=== PATIENT | female | born 1970 | race Caucasian/White ===

== ENCOUNTER 2022-12-28 16:10 | Outpatient (CLI) | payer MEDICAID, SELFPAY ==
[2022-12-28 22:48] LABS: Vitamin D 25 Hydroxy* 32 ng/mL (30-80)
== END 2022-12-28 16:11 | disposition home or self-care (01) ==
LOC: FRMREF 16:11
PROVIDERS: PCP Family Medicine; Visit Provider Family Medicine
DX: E11.9 Type 2 diabetes mellitus without complications (principal)
CPT/HCPCS: 82306

== ENCOUNTER 2023-01-11 11:53 | Outpatient (CLI) | payer MEDICAID, SELFPAY | END 2023-01-11 11:54 | disposition home or self-care (01) | PROVIDERS: PCP Family Medicine; Visit Provider Nurse Practitioner Family | DX: R30.0 Dysuria (principal); N39.0 Urinary tract infection, site not specified | CPT/HCPCS: 87086; 87186 ==

== ENCOUNTER 2023-01-27 09:07 | Outpatient (CLI) | payer MEDICAID, SELFPAY | END 2023-01-27 09:08 | disposition home or self-care (01) | LOC: NFLDREF 01-29 01:18 | PROVIDERS: PCP Family Medicine; Referring Provider Family Medicine; Visit Provider Family Medicine | DX: N39.0 Urinary tract infection, site not specified (principal) | CPT/HCPCS: 87086 ==

== ENCOUNTER 2023-02-02 08:02 | Outpatient (CLI) | payer MEDICAID, SELFPAY | END 2023-02-02 08:03 | disposition home or self-care (01) | PROVIDERS: PCP Family Medicine; Visit Provider Physician Assistant Medical | DX: N39.0 Urinary tract infection, site not specified (principal); R10.9 Unspecified abdominal pain | CPT/HCPCS: 80053; 87086 ==

== ENCOUNTER 2023-02-03 13:49 | Outpatient (CLI) | payer MEDICAID, SELFPAY ==
--- NOTE | 2023-02-03 14:00 | CRLHL7_ITS ---
For Patients: As a result of the Century Cures Act, medical imaging exams and procedure reports are released immediately into your electronic medical record. You may view this report before your referring provider. If you have questions, please contact your health care provider. Indication: history of recurrent UTI, right abdominal pain Technique: Noncontrast CT abdomen and pelvis Please note that all CT scans at this facility use dose modulation, iterative reconstruction, and/or weight-based dosing when appropriate to reduce radiation dose to as low as reasonably achievable. Comparison: 09/10/2019 Findings: Lung bases are clear. No pleural effusion. No basilar infiltrate. There are 2 small simple cysts within the left hepatic lobe measuring up to 9 millimeters. The gallbladder is absent. No biliary obstruction. The spleen is normal. The pancreas is unremarkable. Normal adrenal glands. The kidneys are normal. Stable subcentimeter retroperitoneal lymph nodes. The bladder is unremarkable. Normal uterus and ovaries. No adnexal mass. No pelvic free fluid. No abscess. No free air. Stomach appears normal. No bowel obstruction. No inflammatory bowel disease. Stable subcentimeter right sided mesenteric lymph nodes. The ureters are normal. Transitional lumbosacral anatomy on the right at L5-S1 incidentally noted. Appendix is surgically absent. Impression: No renal, ureteral or bladder stone. No hydronephrosis or hydroureter. No inflammatory changes. Incidental intrahepatic cysts and status post cholecystectomy. Stable subcentimeter mesenteric and retroperitoneal lymph nodes, considered normal. Please note that all CT scans at this facility use dose modulation, iterative reconstruction, and/or weight-based dosing when appropriate to reduce radiation dose to as low as reasonably achievable. Dictated by Jermaine Fonseca MD @ 02/04/2023 7:09:12 AM (Electronically Signed)
== END 2023-02-03 13:50 | disposition home or self-care (01) ==
LOC: CT 13:50
PROVIDERS: PCP Family Medicine; Visit Provider Physician Assistant Medical
DX: N39.0 Urinary tract infection, site not specified (principal); K76.89 Other specified diseases of liver; R10.9 Unspecified abdominal pain
CPT/HCPCS: 74176

== ENCOUNTER 2023-02-22 08:13 | Outpatient (CLI) | payer MEDICAID, SELFPAY | END 2023-02-22 08:14 | disposition home or self-care (01) | PROVIDERS: PCP Family Medicine; Visit Provider Physician Assistant | DX: N89.8 Other specified noninflammatory disorders of vagina (principal); N39.0 Urinary tract infection, site not specified | CPT/HCPCS: 87086; 87102; 87186 ==

== ENCOUNTER 2023-03-04 10:47 | Outpatient (CLI) | payer MEDICAID, SELFPAY ==
--- NOTE | 2023-03-04 11:00 | CRLHL7_ITS ---
For Patients: As a result of the Century Cures Act, medical imaging exams and procedure reports are released immediately into your electronic medical record. You may view this report before your referring provider. If you have questions, please contact your health care provider. INDICATION: Pelvic pain COMPARISON: CT 02/03/2023 TECHNIQUE: 2D gary scale and color Doppler images were acquired of the pelvis using a transabdominal and transvaginal approach. FINDINGS: Sonographic images demonstrate a normal size and smooth outer contour of the uterus. Uterus measures 6.1 cm in length by 3.9 cm in AP diameter by 3.4 cm in transverse dimension. The myometrium has a normal uniform echotexture. The endometrial lining measures 3 mm in composite thickness. The ovaries are not visualized. There are no suspicious fluid collections within the cul-de-sac. IMPRESSION: Normal uterus. Ovaries not visualized. Dictated by Jermaine Fonseca MD @ 03/04/2023 11:45:52 AM (Electronically Signed)
== END 2023-03-04 10:48 | disposition home or self-care (01) ==
PROVIDERS: PCP Family Medicine; Visit Provider Physician Assistant
DX: R10.2 Pelvic and perineal pain (principal)
CPT/HCPCS: 76830; 76856

== ENCOUNTER 2023-03-08 11:17 | Outpatient (CLI) | payer MEDICAID, SELFPAY | END 2023-03-08 11:18 | disposition home or self-care (01) | PROVIDERS: PCP Family Medicine; Referring Provider Family Medicine; Visit Provider Obstetrics & Gynecology | DX: N39.0 Urinary tract infection, site not specified (principal) | CPT/HCPCS: 87086 ==

== ENCOUNTER 2023-05-05 14:44 | Outpatient (CLI) | payer MEDICAID, SELFPAY ==
--- OUTSIDE RECORDS SUMMARY | 2023-05-06 09:48 | XMS_ITS | Continuity of Care Document ---
Author Name Unknown Organization [facility] v[facility] Address [address] [place] [address] Phone Care Team Providers Care Clerk General Office Name Role Phone Will MD SALVADOR, Jayme Unavailable Unavailabl e Allergies, Adverse Reactions, Alerts Substance Reaction Status Criticality BUPROPION HCL Active No Information vancomycin Active No Information NITROFURANTOIN MACROCRYSTALLINE Active No Information nitrofurantoin Active No Informatio n azithromycin Active No Information adhesive Rash Active No Information Penicillins Rash Active No Information gabapentin Rash Active No Information Medications Medication Instructions Dosage Effective Dates (start - stop) Status Comments ESTRADIOL (unknown strength) insert by vaginal route every week Not Available - Active Flonase Allergy Relief 50 mcg/actuation nasal spray,suspension spray 1 - 2 spray by intranasal route every day in each nostril as needed 50-100 MCG - Active Procedures Procedure Date OFFICE/OUTPATIENT VISIT, EST Drug test def 22+ classes Drug Urine Toxology With Chromatography PT-FOCUSED HLTH RISK ASSMT OFFICE CONSULTATION OFFICE/OUTPATIENT VISIT, EST OFFICE/OUTPATIENT VISIT, EST INTERVENE HLTH/BEHAVE, IN OFFICE/OUTPATIENT VISIT, EST INTERVENE HLTH/BEHAVE, IN MANUAL THERAPY PT RE-EVALUATION INTERVENE HLTH/BEHAVE, IN MANUAL THERAPY NEUROMUSCULAR REEDUCATION INTERVENE HLTH/BEHAVE, IN OFFICE/OUTPATIENT VISIT, EST NEUROMUSCULAR REEDUCATION THERAPEUTIC ACTIVITIES THERAPEUTIC EXERCISES INTERVENE HLTH/BEHAVE, IN NEUROMUSCULAR REEDUCATION MANUAL THERAPY THERAPEUTIC EXERCISES NEUROMUSCULAR REEDUCATION MANUAL THERAPY THERAPEUTIC EXERCISES INTERVENE HLTH/BEHAVE, IN OFFICE/OUTPATIENT VISIT, EST INTERVENE HLTH/BEHAVE, IN INTERVENE HLTH/BEHAVE, INDIV NEUROMUSCULAR REEDUCATION MANUAL THERAPY [employer] THERAPEUTIC ACTIVITIES PT EVALUATION NEUROMUSCULAR REEDUCATION PT [place] OFFICE/OUTPATIENT VISIT, EST INTERVENE HLTH/BEHAVE, INDIV INTERVENE HLTH/BEHAVE, INDIV ASSESS HLTH/BEHAVE, INIT Prescription Prior Auth OFFICE/OUTPATIENT VISIT, EST OFFICE/OUTPATIENT VISIT, EST NEUROMUSCULAR REEDUCATION MANUAL THERAPY NEUROMUSCULAR REEDUCATION MANUAL THERAPY NEUROMUSCULAR REEDUCATION PT EVALUATION MANUAL THERAPY OFFICE CONSULTATION Advance Directives Directive Yes / No Effective Date File Name No Information Encounters Encounter Description Practice Location Reason(s) For Visit Diagnoses Date Provider Providers Copied on Encounter [facility], [address] [place], [place], [id number] , [place] tel:[phone] [facility] [place] No Information 2 Chalino Delacruz. [address] [place], [id number], [place]. tel:[phone] OFFICE/OUTPAT IENT VISIT, EST [facility], [address] [place], [id number] , [place] tel:[phone] [facility] [place] Abdominal pain (chief complaint) Chest pain, unspecifiedGene ralized abdominal painOther jail (current) drug therapy 9 Marietta Harris. [address] [place] [address], [id number], [place]. tel:[phone] Referring Provider: Jayme Haji, [address] [place] [address], [address]. [phone] OFFICE CONSULTATION [facility], [address] [place] [address], [id number] , [place] tel:[phone] [facility] Abdominal pain (chief complaint) Other chronic painGeneralized abdominal painChest pain, unspecifiedEnco unter for therapeutic drug level monitoringLong term (current) use of opiate analgesicOther jail (current) drug therapy 9 Marietta Harris. [address] [place] [address] 11 [facility] [address], [place], [id number], [place]. tel:[phone] Referring Provider: Al Oswald [facility] [address] [place], [address]. tel:[phone] OFFICE/OUTPAT IENT VISIT, [facility], [address] [place] [address], [id number] , [place] [phone] [facility] [place] widespread pain (chief complaint) Vitamin D deficiency 2 Will Jayme. [address] [place] [address] [place], [place], [id number], [place]. tel:[phone] Referring Provider: Jayme Haji, [address] [place] [address], [address]. tel:[phone] OFFICE/OUTPAT IENT VISIT, [facility], [address] [place] [address], [id number] , [place] [phone] [facility] [place] widespread pain (chief complaint) Myalgia and myositis, unspecified 1 Will Jayme. [address] [place] [address], [place], [place], [id number], [place]. tel:[phone] Referring Provider: Jayme Haji, [address] [place] [address], [address]. [phone] [facility], [address] [place] [address], [id number] , [place] tel:[phone] [facility] [place] Myalgia and myositis, unspecified 1 Aisha Tyler Peg. [address] [place] [address], [id number], [place]. tel:[phone] Referring Provider: Jayme Haji, [address] [place] [address], [address]. [phone] OFFICE/OUTPAT IENT VISIT, EST [facility], [address] [place] [address], [id number] , [place] tel:[phone] [facility] [place] widespread pain (chief complaint) Myalgia and myositis, unspecified 1 Chalino Delacruz. [address] [place] [address], [id number], [place]. tel:[phone] Referring Provider: Jayme Haji, [address] [place] [address], [address]. tel:[phone] [facility], [address] [place] [address], [id number] , [place] tel:[phone] [facility] [place] Myalgia and myositis, unspecified Sep-2 1 Aisha Tyler Peg. [address] [place] [address], [id number], [place]. tel:[phone] Referring Provider: Jayme Haji, [address] [place] [address], [address]. tel:[phone] [facility], [address] [place] [address], [id number] , [place] tel:[phone] [facility] hip pain (chief complaint) No Information Sep-2 1 Bandar Wolf. [address] [place] [address], [address]. tel:[phone] [facility], [address] [place] [address], [id number] , [place] tel: [phone] [facility] [place] Myalgia and myositis, unspecified 1 Aisha Scott Peg. [address] [place] [address], [id number], [place]. tel:[phone] Referring Provider: Jayme Haji, [address] [place] [address], [address]. [phone] [facility], [address] [place] [address], [id number] , [place] tel:[phone] [facility] hip pain (chief complaint) No Information 1 Bandar PT SHON Wolf. [address] [place] [address], [address]. tel:[phone] Referring Provider: Jayme Haji, [address] [place] [address], [address]. [phone] [facility], [address] [place] [address], [id number] , [place] tel:[phone] [facility] Myalgia and myositis, unspecified 1 Aisha Scott Peg. [address] [place] [address], [id number], [place]. tel:[phone] Referring Provider: Jayme Haji, [address] [place] [address], [address]. tel:[phone] OFFICE/OUTPAT IENT VISIT, EST [facility], [address] [place] [address], [id number] , [place] [phone] [facility] [place] widespread pain (chief complaint) Myalgia and myositis, unspecified 1 Chalino Delacruz. [address] [place] [address], [id number], [place]. tel:[phone] Referring Provider: Jayme aHji, [address] [place] [address], [address]. tel: [phone] [facility], [address] [place] [address], [id number] , [place] tel: [phone] [facility] hip pain (chief complaint) No Information 1 Portillo PT PRC Maryann. [address] [place] [address], [address]. tel:[phone] Referring Provider: Jayme Haji, [address] [place] [address], [address]. tel: [phone] [facility], [address] [place] [address], [id number] , [place] tel: [phone] [facility] Myalgia and myositis, unspecified 1 Aisha Alvarenga. [address] [place] [address], [id number], [place]. tel:[phone] Referring Provider: Jayme Haji, [address] [place] [address], [address]. tel: [phone] [facility], [address] [place] [address], [id number] , [place] tel: [phone] [facility] [place] No Information 1 Bandar PT PRC Maryann. [address] [place] [address], [address]. tel:[phone] Referring Provider: Jayme Haji, [address] [place] [address], [address]. tel: [phone] [facility], [address] [place] [address], [id number] , [place] tel: [phone] [facility] [place] No Information 1 Portillo PT PRC Maryann. [address] [place] [address], [address]. tel:[phone] Referring Provider: Jayme Haji, [address] [place] [address], [address]. tel:[phone] [facility], [address] [place] [address] [place], [id number] , [place] tel: [phone] [facility] [place] Myalgia and myositis, unspecified 1 Aisha Tyler Peg. [address] [place] [address] [place], [id number], [place]. tel:[phone] Referring Provider: Jayme Haji, [address] [place] [address], [address]. tel:[phone] OFFICE/OUTPAT IENT VISIT, EST [facility], [address] [place] [address] [place], [id number] , [place] tel: [phone] [facility] [place] widespread pain (chief complaint) Myalgia and myositis, unspecified 1 Chalino Delacruz. [address] [place] [address] [place], [place], [id number], [place]. tel:[phone] Referring Provider: Jayme Haji, [address] [place] [address], [address]. tel:[phone] [facility], [address] [place] [address] [place], [id number] , [place] tel: [phone] [facility] [place] Myalgia and myositis, unspecified 1 Aisha Tyler Peg. [address] [place] [address] [place], [place], [id number], [place]. tel:[phone] Referring Provider: Jayme Haji, [address] [place] [address], [address]. tel:[phone] [facility], [address] [place] [address], [id number] , [place] tel:[phone] [facility] [place] No Information 1 Bandar Wolf. [address] [place] [address], [address]. tel:[phone] Referring Provider: Jayme Haji, [address] [place] [address], [address]. tel:[phone] [facility], [address] [place] [address] [place], [id number] , [place] tel: [phone] [facility] [place] No Information 1 Bandar Wolf. [address] [place] [address] [place], [address]. tel:[phone] Referring Provider: Jayme Haji, [address] [place] [address], [address]. tel:[phone] OFFICE/OUTPAT IENT VISIT, EST [facility], [address] [place] [address] [place], [id number] , [place] tel: [phone] [facility] [place] widespread pain (chief complaint) Myalgia and myositis, unspecified 1 Chalino Delacruz. [address] [place] [address], [id number], [place]. tel:[phone] Referring Provider: Jayme Haji, [address] [place] [address], [address]. tel:[phone] [facility], [address] [place] [address], [id number] , [place] tel: [phone] [facility] [place] No Information 1 Aisha Scott Peg. [address] [place] [address], [id number], [place]. tel:[phone] Referring Provider: Jayme Haji, [address] [place] [address], [address]. tel:[phone] [facility], [address] [place] [address] [place], [id number] , [place] tel: [phone] [facility] [place] No Information 1 Aisha Espinosain Peg. [address] [place] [address], [id number], [place]. tel:[phone] Referring Provider: Jayme Haji, [address] [place] [address], [address]. tel:[phone] [facility], [address] [place] [address], [id number] , [place] tel:[phone] [facility] [place] No Information 1 Aisha Tyler Alvarenga. [address] [place] [address], [id number], [place]. tel:[phone] Referring Provider: Jayme Haji, [address] [place] [address], [address]. tel:[phone] [facility], [address] [place] [address], [id number] , [place] tel:[phone] [facility] [place] No Information 1 Colten Hensley. [address] [place] [address], [address], [place]. tel:[phone] Referring Provider: Jayme Haji, [address] [place] [address], [address]. tel:[phone] OFFICE/OUTPAT IENT VISIT, EST [facility], [address] [place] [address], [id number] , [place] tel:[phone] [facility] [place] widespread pain (chief complaint) Myalgia and myositis, unspecified 1 Will Jayme. [address] [place] [address], [id number], [place]. tel:[phone] Referring Provider: Jayme Haji, [address] [place] [address], [address]. tel:[phone] OFFICE/OUTPAT IENT VISIT, [facility], [address] [place] [address], [id number] , [place] tel:[phone] [facility] [place] widespread pain (chief complaint) Myalgia and myositis, unspecified 1 Will Jayme. [address] [place] [address], [id number], [place]. tel:[phone] Referring Provider: Jayme Haji, [address] [place] [address], [address]. tel: [phone] [facility], [address] [place] [address], [id number] , tel: [phone] [facility] [place] No Information 0 Colten Hensley. [address] [place] [address], [facility], . tel:[phone] Referring Provider: Jayme Haji, [address] [place] [address], [address]. tel:[phone] [facility], [address] [place] [address], [id number] , tel: [phone] [facility] [place] No Information 0 Colten Hensley. [address] [place] [address], [facility], . tel:[phone] Referring Provider: Jayme Haji, [address] [place] [address], [address]. tel:[phone] [facility], [address] [place] [address], [id number] , tel: [phone] [facility] [place] No Information 0 Colten Hensley. [address] [place] [address], [facility], . tel:[phone] Referring Provider: Winter Wilson, [address] [place] [address], [address]. tel:[phone] OFFICE CONSULTATION [facility], [address] [place] [address], [id number] , tel: [phone] [facility] chronic pain pain (chief complaint) Myalgia and myositis, unspecified 0 Chalino Delacruz. [address] [place] [address], [id number], [place]. tel:[phone] Family History Family Member Type Diagnosis Age At Onset No Information Payers Payer name Insurance type Covered republican ID Lidia kellyblair(s) [facility] [id number] Social History Type Description Quantity Date Captured Comments Sex Female Smoking Status No Information Chief Complaint And Reason For Visit No Information Reason For Referral Reason For Referral No Information Plan Of Treatment Date Type Action Status Future Order: Lab Order Drug Jen t Def 22+ Classes (G0483), Ordered on: Ordered Future Order: Lab Order Toxicolo gy Preliminary Panel (2100), Sent on: Sent History Of Present Illness Encounter Date Complaint History Of Prese nt Illness Abdominal pain (comments) Nicki is here today for a followup and medication refill for right-sided abdominal pain and diffuse chest wall pain. Remains interested in medical cannabis today. Additional questions regarding certification process were addressed today by provider. Inquires about antiinflammatory for ongoing chest wall pain. States pool therapy order has not yet been received by [facility] and [facility]. Requests order be sent to Lexy Matthew in as well.Patient is not accompanied today and has no further questions or other concerns. Abdominal pain Severity is 4. D uration is chronic. It occurs constantly. Location is LUQ. There is radiation to back and chest. The patient describes it as aching. Denies aggravating factors. Denies relieving factors. Abdominal pain (comments) Nicki is here for an initial consult for abdominal pain, referred by Dr. Juárez. Her pain began gradually without inciting event or injury in April 2018. Pain is primarily right sided and radiates to right back. Hx of appendectomy, and multiple sections. Was advised she has extensive scar tissue. Consulted with OBGYN and completed laparoscopy April 2019 where several adhesions were removed. Surgery relieved her pain for about a month before her symptoms returns. Secondary concerns of dull chest pain with associated edema in hands, feet, and legs. By the end of the day her feet and calves are swollen and painful. Cardio and costochondritis w/u unremarkable per patient. Water pills ineffective. Has not undergone PT to treat her symptoms, but appears interested. Diet changes were unhelpful. Myofascial fascial release with some benefit. Tried steroid injections at [facility] without benefit. Has taken Ibuprofen, Tramadol, and hydrocodone for additional pain relief. No longer can tolerate NSAIDS due to frequent use in the past. She is not interested in opioid therapy as it has not been particularly helpful in the past. Nicki is interested in recommended therapies and would like [facility] to assume management of pain care. Abdominal pain Severity is 4. D uration is chronic. It occurs constantly. Location is RLQ and chest, BLE. There is radiation to back. The patient describes it as aching. Denies aggravating factors. Relieving factors include medications and rest. Functional Status Date Functional Assessmen t No Information Instructions Date Instruction Additional Infor mation No Information Assessments Type Assessment Date No Information Patient Care Teams Name Effective Dates (start - stop) Status Members No Information
--- OUTSIDE RECORDS SUMMARY | 2023-05-06 09:48 | XMS_ITS | Continuity of Care Document ---
Author Name Unknown Organization [facility] Address [address] [place] [address] Phone Care Team Providers Care Hunting And Fishing Guide Name Role Phone Carlotta FRANCES, Dylon Unavailable Unavailable Results Test Name Date and Time Measure Units Reference Range Abnormal Flag Status Commen ts Panel Description: DMARD Final AST 10:47:00 15 U/L 5-34 Final ALT 10:47:00 10 IU/L 5-35 Final Creatinine 10:47:00 0.7 mg/dL 0.5-1.3 Final ALB 10:47:00 4.5 g/dL 3.5-5.3 Final Advance Directives Directive Yes / No Effective Date File Name No Information Encounters Encounter Description Practice Location Reason(s) For Visit Diagnoses Date Provider Providers Copied on Encounter [facility], [address], [place], [address], [place] tel:[phone] No Information 3 Carlotta Osborne. [facility] [address], [place], [address], [place]. tel:[phone] Family History Family Member Type Diagnosis Age At Onset No Information Payers Payer name Insurance type Covered democrat ID Authoriza tion(s) No Information Social History Type Description Quantity Date Captured Comments Sex Female Smoking Status No Information Chief Complaint And Reason For Visit No Information Reason For Referral Reason For Referral No Information Plan Of Treatment Date Type Action Status No Information History Of Present Illness Encounter Date Complaint History Of Prese nt Illness No Information Functional Status Date Functional Assessmen t No Information Instructions Date Instruction Additional Infor mation No Information Assessments Type Assessment Date No Information Patient Care Teams Name Effective Dates (start - stop) Status Members No Information
== END 2023-05-05 14:45 | disposition home or self-care (01) ==
LOC: NFLDREF 05-06 09:44
PROVIDERS: PCP Family Medicine; Referring Provider Family Medicine; Visit Provider Obstetrics & Gynecology
DX: R30.0 Dysuria (principal); B37.31 Acute candidiasis of vulva and vagina; N89.8 Other specified noninflammatory disorders of vagina; N95.8 Other specified menopausal and perimenopausal disorders; N39.0 Urinary tract infection, site not specified; N30.00 Acute cystitis without hematuria; N34.2 Other urethritis
CPT/HCPCS: 87086; 87186

== ENCOUNTER 2023-05-24 13:07 | Outpatient (CLI) | payer MEDICAID, SELFPAY | END 2023-05-24 13:08 | disposition home or self-care (01) | LOC: NFLDREF 05-26 07:33 | PROVIDERS: PCP Family Medicine; Referring Provider Family Medicine; Visit Provider Obstetrics & Gynecology | DX: R39.9 Unspecified symptoms and signs involving the genitourinary system (principal) | CPT/HCPCS: 87086 ==

== ENCOUNTER 2023-06-04 12:31 | Outpatient (CLI) | payer MEDICAID, SELFPAY | END 2023-06-04 12:32 | disposition home or self-care (01) | PROVIDERS: PCP Family Medicine; Visit Provider Obstetrics & Gynecology | DX: N89.8 Other specified noninflammatory disorders of vagina (principal) | CPT/HCPCS: 80076; 87102 ==

== ENCOUNTER 2023-07-02 13:54 | Outpatient (CLI) | payer MEDICAID, SELFPAY | END 2023-07-02 13:55 | disposition home or self-care (01) | LOC: NFLDREF 07-05 07:26 | PROVIDERS: PCP Family Medicine; Referring Provider Family Medicine; Visit Provider Obstetrics & Gynecology | DX: N30.00 Acute cystitis without hematuria (principal) | CPT/HCPCS: 87086; 87186 ==

== ENCOUNTER 2023-07-13 15:30 | Outpatient (CLI) | payer MEDICAID, SELFPAY ==
--- OUTSIDE RECORDS SUMMARY | 2023-07-15 14:35 | XMS_ITS | Continuity of Care Document ---
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 [facility] [address], [place], [address], [place]. tel:[phone] Family History Family Member Type Diagnosis Age At Onset No Information Payers Payer name Insurance type Covered alliance party ID Authoriza tion(s) No Information Social History Type Description Quantity Date Captured Comments Sex Female Smoking Status No Information Chief Complaint And Reason For Visit No Information Reason For Referral Reason For Referral No Information History Of Present Illness Encounter Date Complaint History Of Prese nt Illness No Information Functional Status Date Functional Assessmen t No Information Instructions Date Instruction Additional Infor mation No Information Assessments Type Assessment Date No Information Patient Care Teams Name Effective Dates (start - stop) Status Members No Information
--- OUTSIDE RECORDS SUMMARY | 2023-07-15 14:35 | XMS_ITS | Continuity of Care Document ---
Author Name Unknown Organization [facility] vika Address [address] [place] [address] Phone Care Team Providers Care Mc Kay Machine Operator Name Role Phone Will MD SALVADOR, Jayme [...] Diagnoses Date Provider Providers Copied on Encounter [facility], [address] [place], [place], [id number] , [place] tel:[phone] [facility] Thermal No Information 2 Chalino Delacruz. [address] [place], [id number], [place]. tel:[phone] OFFICE/OUTPAT IENT VISIT, EST [facility], [address] [place], [id number] , [place] tel:[phone] [facility] Abdominal pain (chief complaint) Chest pain, unspecifiedGene ralized abdominal painOther petroleum terminal plant operator (current) drug therapy 9 Marietta Harris. [address] [place] [address], [id number], [place]. tel:[phone] Referring Provider: Jayme Haji, [address] [place] [address], [address]. [phone] OFFICE CONSULTATION [facility], [address] [place] [address], [id number] , [place] tel:[phone] [facility] Abdominal pain (chief complaint) Other chronic painGeneralized abdominal painChest pain, unspecifiedEnco unter for therapeutic drug level monitoringLong term (current) use of opiate analgesicOther petroleum terminal plant operator (current) drug therapy 9 Marietta Harris. [address] [place] [address] 11 [facility] [address], [place], [id number], [place]. tel:[phone] Referring Provider: Al Oswald [facility] [address] [place], [address]. tel:[phone] OFFICE/OUTPAT IENT VISIT, [facility], [address] [place] [address], [id number] , [place] [phone] [facility] Thermal widespread pain (chief complaint) Vitamin D deficiency 2 Will Jayme. [address] [place] [address] [place], [place], [id number], [place]. tel:[phone] Referring Provider: Jayme Haji, [address] [place] [address], [id number]. tel:[phone] OFFICE/OUTPAT IENT VISIT, [facility], [address] [place] [address], [id number] , [place] [phone] [facility] Thermal widespread pain (chief complaint) Myalgia and myositis, unspecified 1 Will Jayme. [address] [place] [address], [place], [place], [id number], [place]. tel:[phone] Referring Provider: Jayme Haji, [address] [place] [address], [address]. [phone] [facility], [address] [place] [address], [id number] , [place] tel:[phone] [facility] Nanci Myalgia and myositis, unspecified 1 Aisha Tyler Peg. [address] [place] [address], [id number], [place]. tel:[phone] Referring Provider: Jayme Haji, [address] [place] [address], [address]. [phone] OFFICE/OUTPAT IENT VISIT, EST [facility], [address] [place] [address], [id number] , [place] tel:[phone] [facility] Nanci widespread pain (chief complaint) Myalgia and myositis, unspecified 1 Chalino Delacruz. [address] [place] [address], [id number], [place]. tel:[phone] Referring Provider: Jayme Haji, [address] [place] [address], [address]. tel:[phone] [facility], [address] [place] [address], [id number] , [place] tel:[phone] [facility] Nanci Myalgia and myositis, unspecified Sep-2 1 Aisha Tyler Peg. [address] [place] [address], [id number], [place]. tel:[phone] Referring Provider: Jayme Haji, [address] [place] [address], [address]. tel:[phone] [facility], [address] [place] [address], [id number] , [place] tel:[phone] [facility] hip pain (chief complaint) No Information Sep-2 1 Bandar Wolf. [address] [place], [place] [address], [address]. tel:[phone] [facility], [address] [place] [address], [id number] , [place] tel:[phone] [facility] [place]anc[place] Myalgia and myositis, unspecified 1 Aisha Scott Peg. [address] [place] [address], [id number], [place]. tel:[phone] Referring Provider: Jayme Haji, [address] [place] [address], [address]. [phone] [facility], [address] [place] [address], [id number] , [place] tel:[phone] [facility] hip pain (chief complaint) No Information 1 Bandar PT SHON Wolf. [address] [place] [address], [address]. tel:[phone] Referring Provider: Jayme Haji, [address] [place] [address], [address]. [phone] [facility], [address] [place] [address], [id number] , [place] tel:[phone] [facility] Myalgia and myositis, unspecified 1 Aisha Scott Peg. [address] [place] [address], [id number], [place]. tel:[phone] Referring Provider: Jayme Haji, [address] [place] [address], [address]. tel:[phone] OFFICE/OUTPAT IENT VISIT, EST [facility], [address] [place] [address], [id number] , [place] [phone] [facility] Thermal widespread pain (chief complaint) Myalgia and myositis, unspecified 1 Chalino Delacruz. [address] [place] [address], [id number], [place]. tel:[phone] Referring Provider: Jayme Haji, [address] [place] [address], [address]. tel: [phone] [facility], [address] [place] [address], [id number] , [place] tel: [phone] [facility] hip pain (chief complaint) No Information 1 Portillo PT PRC Maryann. [address] [place] [address], [address]. tel:[phone] Referring Provider: Jayme Haji, [address] [place] [address], [address]. tel: [phone] [facility], [address] [place] [address], [id number] , [place] tel: [phone] [facility] Myalgia and myositis, unspecified 1 Aisha Alvarenga. [address] [place] [address], [id number], [place]. tel:[phone] Referring Provider: Jayme Haji, [address] [place] [address], [id number]. tel: [phone] [facility], [address] [place] [address], [id number] , [place] tel: [phone] [facility] Nanci No Information 1 Bandar PT PRC Maryann. [address] [place] [address], [address]. tel:[phone] Referring Provider: Jayme Haji, [address] [place] [address], [address]. tel: [phone] [facility], [address] [place] [address], [id number] , [place] tel: [phone] [facility] Thermal No Information 1 Portillo PT PRC Maryann. [address] [place] [address], [address]. tel:[phone] Referring Provider: Jayme Haji, [address] [place] [address], [address]. tel:[phone] [facility], [address] [place] [address] [place], [id number] , [place] tel: [phone] [facility] [place] Myalgia and myositis, unspecified 1 Aisha Tyler Peg. [address] [place] [address] [place], [id number], [place]. tel:[phone] Referring Provider: Jayme Haji, [address] [place] [address], [address]. tel:[phone] OFFICE/OUTPAT IENT VISIT, EST [facility], [address] [place] [address] [place], [id number] , [place] tel: [phone] [facility] Thermal widespread pain (chief complaint) Myalgia and myositis, unspecified 1 Chalino Delacruz. [address] [place] [address] [place], [place], [id number], [place]. tel:[phone] Referring Provider: Jayme Haji, [address] [place] [address], [address]. tel:[phone] [facility], [address] [place] [address] [place], [id number] , [place] tel: [phone] [facility] Myalgia and myositis, unspecified 1 Aisha Tyler Peg. [address] [place] [address] [place], [place], [id number], [place]. tel:[phone] Referring Provider: Jayme Haji, [address] [place] [address], [address]. tel:[phone] [facility], [address] [place] [address], [id number] , [place] tel:[phone] [facility] Nanci No Information 1 Bandar Wolf. [address] [place] [address], [address]. tel:[phone] Referring Provider: Jayme Haji, [address] [place] [address], [address]. tel:[phone] [facility], [address] [place] [address] [place], [id number] , [place] tel: [phone] [facility] Thermal No Information 1 Bandar Wolf. [address] [place] [address] [place], [address]. tel:[phone] Referring Provider: Jayme Haji, [address] [place] [address], [address]. tel:[phone] OFFICE/OUTPAT IENT VISIT, EST [facility], [address] [place] [address] [place], [id number] , [place] tel: [phone] [facility] Thermal widespread pain (chief complaint) Myalgia and myositis, unspecified 1 Chalino Delacruz. [address] [place] [address], [id number], [place]. tel:[phone] Referring Provider: Jayme Haji, [address] [place] [address], [address]. tel:[phone] [facility], [address] [place] [address], [id number] , [place] tel: [phone] [facility] Thermal No Information 1 Aisha Scott Peg. [address] [place] [address], [id number], [place]. tel:[phone] Referring Provider: Jayme Haji, [address] [place] [address], [address]. tel:[phone] [facility], [address] [place] [address] [place], [id number] , [place] tel: [phone] [facility] [place]anci No Information 1 Aisha Espinosain Peg. [address] [place] [address], [id number], [place]. tel:[phone] Referring Provider: Jayme Haji, [address] [place] [address], [address]. tel:[phone] [facility], [address] [place] [address], [id number] , [place] tel:[phone] [facility] [place]i No Information 1 Aisha Tyler Alvarenga. [address] [place] [address], [id number], [place]. tel:[phone] Referring Provider: Jayme Haji, [address] [place] [address], [address]. tel:[phone] [facility], [address] [place] [address], [id number] , [place] tel:[phone] [facility] Thermal No Information 1 Colten Hensley. [address] [place] [address], [address], [place]. tel:[phone] Referring Provider: Jayme Haji, [address] [place] [address], [address]. tel:[phone] OFFICE/OUTPAT IENT VISIT, EST [facility], [address] [place] [address], [id number] , [place] tel:[phone] [facility] Thermal widespread pain (chief complaint) Myalgia and myositis, unspecified 1 Will Jayme. [address] [place] [address], [id number], [place]. tel:[phone] Referring Provider: Jayme Haji, [address] [place] [address], [address]. tel:[phone] OFFICE/OUTPAT IENT VISIT, [facility], [address] [place] [address], [id number] , [place] tel:[phone] [facility] Thermal widespread pain (chief complaint) Myalgia and myositis, unspecified 1 Will Jayme. [address] [place] [address], [id number], [place]. tel:[phone] Referring Provider: Jayme Haji, [address] [place] [address], [address]. tel: [phone] [facility], [address] [place] [address], [id number] , tel: [phone] [facility] [place] No Information 0 Colten Hensley. [address] [place] [address], [facility], . tel:[phone] Referring Provider: Jayme Haji, [address] [place] [address], [address]. tel:[phone] [facility], [address] [place] [address], [id number] , tel: [phone] [facility] Thermal No Information 0 Colten Hensley. [address] [place] [address], [facility], . tel:[phone] Referring Provider: Jayme Haji, [address] [place] [address], [address]. tel:[phone] [facility], [address] [place] [address], [id number] , tel: [phone] [facility] [place]i No Information 0 Colten Hensley. [address] [place] [address], [facility], . tel:[phone] Referring Provider: Winter Wilson, [address] [place] [address], [address]. tel:[phone] OFFICE CONSULTATION [facility], [address] [place] [address], [id number] , tel: [phone] [facility] chronic pain pain (chief complaint) Myalgia and myositis, unspecified 0 Chalino Delacruz. [address] [place] [address], [id number], [place]. tel:[phone] Family History Family Member Type Diagnosis Age At Onset No Information Payers Payer name Insurance type Covered libertarian ID Lidia kellyblair(s) [facility] [id number] Social History Type Description Quantity Date Captured [...] History Of Prese nt Illness Abdominal pain Severity is 4. D uration is chronic. It occurs constantly. Location is [place]. There is radiation to back and chest. The patient describes it as aching. Denies aggravating factors. Denies relieving factors. Abdominal pain (comments) Nicki is here today for a followup and medication refill for right-sided abdominal pain and diffuse chest wall pain. Remains interested in medical cannabis today. Additional questions regarding certification process were addressed today by provider. Inquires about antiinflammatory for ongoing chest wall pain. States pool therapy order has not yet been received by [facility] and [facility]. Requests order be sent to Lexy Matthew in as well.Patient is not accompanied today and has no further questions or other concerns. Abdominal pain (comments) Nicki is here for [...] with some benefit. Tried steroid injections at [facility] without benefit. Has taken Ibuprofen, Tramadol, and hydrocodone for additional pain relief. No longer can tolerate NSAIDS due to frequent use in the past. She is not interested in opioid therapy as it has not been particularly helpful in the past. Nicki is interested in recommended therapies and would like [facility] to assume management of pain care. Abdominal [...]
== END 2023-07-13 15:31 | disposition home or self-care (01) ==
LOC: NFLDREF 07-15 14:34
PROVIDERS: PCP Family Medicine; Referring Provider Family Medicine; Visit Provider Internal Medicine Nephrology
DX: N30.00 Acute cystitis without hematuria (principal)
CPT/HCPCS: 87086

== ENCOUNTER 2023-07-15 10:45 | Outpatient (RCR) | payer MEDICAID, SELFPAY ==
--- NOTE | 2023-04-29 13:38 | PT.OPE ---
[facility] Out[facility] Eval Start: 04/21/23 16:50 Freq: Status: Active Protocol: Document 04/29/23 10:11 LSL (Rec: 04/29/23 11:05 LSL [id number]) E-signed By Keerthi Klein, PT Physical Therapy Outpatient Evaluation Insurance Information Insurance Name Medicaid,[facility] Medical Diagnosis R sided rib pain Treating Diagnosis muscle spasm, pain, impaired ROM, core weakness Referring MD Paul Subjective Subjective Pt. reports the pain began in 2018 and have had numerous abdominal surgeries since then . They did a laparoscopy and found she had significant scar tissue and they removed adhesions and umbilical hernia repair. Pain continued and find that her gall bladder wasn't functioning properly and they removed her gall bladder in 09/05 and pain came back a month later. Recently saw skidder operator and he suggested PT. Constant low grade pain that gets worse with any kind of strenuous activity and hurts when I lay on that side. I recently had to sleep on an air mattress and it made it feel a little better. Prolonged sitting, lateral bending increases pain , weeding in garden from knees increases pain and then the next day I can barely move my back. 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 Precautions Treatment Precautions/Contraindications fibromyalgia Weight Bearing Status Full Weight Bearing Therapy Limitations/Systems Review Other Medical Problem Objective Range of Motion AROM - lumbar flexion 90% with pain, B LF 75% with contralateral pain, extension WNL, R rotation 50% with pain in L lumbar, L rotation 75%, thoracic LLF painful R, RLF WFL, L rotation pull R, R rotation pinch R; UE WNL PROM - B SKC, DKC WNL Strength Trunk - upper abdominals 3/5, lower abdominals 1/5, extensors 3-/5 with pain R lateral trunk and lag on R side LE - 5/5, with R hip extension 4+/5 Palpation R QL exceptionally tight, B QL tender, R flank tender at fascial junction, R glut med tender Posture unremarkable Assessment Assessment/Impression Pt. presents with chronic R lateral flank and trunk pain that was not helped by laparoscopic adhesion lysis or gall bladder removal. She presents with spasm of the right QL and tenderness into the lateral trunk that is not present on the left flank. Her fibromyalgia diagnosis is something that may interfere with treatment plan that includes manual therapy. Additionally she has significant trunk weakness that is contributory to her pain. She will benefit from PT to re-establish an exercise program she can be successful at using therex and NM re-ed, manual therapy for tissue tension and joint mobility with modalities prn. Primary Functional Limitations prolonged sitting, trunk rotation, bending to weed, reaching down to the side to diamond picker things Plan of Care Rehabilitation Potential Good Physical Therapy Goals SHORT TERM GOALS: (2-3 weeks) 1. Pt. to have beginning HEP established. 2. Pt. to understand how the pain spasm cycle works and tools she can utilize to change it. 3. Pt to have 2/5 lower abdominal strength to improve spinal stability. 4. Pt. to have 5/5 extensor strength to improve spinal stability. GROUP HOME GOALS: (4+ weeks) 1. Pt. to have 3/5 or greater abdominal strength to improve spinal stability. 2. Pt. able to rotate trunk in standing and sitting with pain less than 2/10. 3. Pt. able to weed her garden with pain less than 2/10. 4. Pt. able to diamond picker items of the ground with pain less than 2/10. Coordination/Communication With Referral Source Treatment Plan/Direct Interventions Electrical Stimulation,Joint Mobilization,Manual Therapy, Neuromuscular Re-ed,Self-Care/ Home Management,Therapeutic Exercises Frequency/Duration 2x/week 4-6 weeks Patient Will Be Discharged From Therapy Completion of LTG(s),Skills Plateau,Independent w/HEP, Independently Progressing Evaluation Billing Untimed Code Treatment Minutes 40 Complexity Moderate Certification Information Initial Certification Date 04/29/23 Ending Certification Date 07/16/23 Provider Signature Shows Agreement With POC & Medical Necessity Physician Signature & Date Requested Please Sign/Date Here Physician Comment/Change : Physician NPI Number #
== END 2023-07-15 11:33 | disposition home or self-care (01) ==
PROVIDERS: PCP Family Medicine; Visit Provider Surgery
DX: R07.81 Pleurodynia (principal); M62.81 Muscle weakness (generalized); Z51.89 Encounter for other specified aftercare
CPT/HCPCS: 97110; 97140; 97162; 97165

== ENCOUNTER 2023-07-16 10:20 | Outpatient (CLI) | payer MEDICAID, SELFPAY ==
--- OUTSIDE RECORDS SUMMARY | 2023-07-16 10:22 | XMS_ITS | Continuity of Care Document ---
Author Name Unknown Organization [facility] vika Address [address] [place] [address] Phone Care Team Providers Care Arc Trimmer Name Role Phone Will MD SALVADOR, Jayme [...] Diagnoses Date Provider Providers Copied on Encounter [facility], [address] [place], [place], [id number] , [place] tel:[phone] [facility] [place] No Information 2 Chalino Delacruz. [address] [place], [id number], [place]. tel:[phone] OFFICE/OUTPAT IENT VISIT, EST [facility], [address] [place], [id number] , [place] tel:[phone] [facility] [place] Abdominal pain (chief complaint) Chest pain, unspecifiedGene ralized abdominal painOther half-way (current) drug therapy 9 Marietta Harris. [address] [place] [address], [id number], [place]. tel:[phone] Referring Provider: Jayme Haji, [address] [place] [address], [address]. [phone] OFFICE CONSULTATION [facility], [address] [place] [address], [id number] , [place] tel:[phone] [facility] Abdominal pain (chief complaint) Other chronic painGeneralized abdominal painChest pain, unspecifiedEnco unter for therapeutic drug level monitoringLong term (current) use of opiate analgesicOther half-way (current) drug therapy 9 Marietta Harris. [address] [place] [address] 11 [facility] [address], [place], [id number], [place]. tel:[phone] Referring Provider: Al Oswald [facility] [address] [place], [address]. tel:[phone] OFFICE/OUTPAT IENT VISIT, [facility], [address] [place] [address], [id number] , [place] [phone] [facility] [place] widespread pain (chief complaint) Vitamin D deficiency 2 Will Jayme. [address] [place] [address] [place], [place], [id number], [place]. tel:[phone] Referring Provider: Jayme Haji, [address] [place] [address], [address]. tel:[phone] OFFICE/OUTPAT IENT VISIT, [facility], [address] [place] [address], [id number] , [place] [phone] [facility] [place] widespread pain (chief complaint) Myalgia and myositis, unspecified 1 Will Jayme. [address] [place] [address], [place], [place], [id number], [place]. tel:[phone] Referring Provider: Jayme Haji, [address] [place] [address], [address]. [phone] [facility], [address] [place] [address], [id number] , [place] tel:[phone] [facility] [place] Myalgia and myositis, unspecified 1 Aisha Tyler Peg. [address] [place] [address], [id number], [place]. tel:[phone] Referring Provider: Jayme Haji, [address] [place] [address], [address]. [phone] OFFICE/OUTPAT IENT VISIT, EST [facility], [address] [place] [address], [id number] , [place] tel:[phone] [facility] [place] widespread pain (chief complaint) Myalgia and myositis, unspecified 1 Chalino Delacruz. [address] [place] [address], [id number], [place]. tel:[phone] Referring Provider: Jayme Haji, [address] [place] [address], [address]. tel:[phone] [facility], [address] [place] [address], [id number] , [place] tel:[phone] [facility] [place] Myalgia and myositis, unspecified Sep-2 1 Aisha Tyler Peg. [address] [place] [address], [id number], [place]. tel:[phone] Referring Provider: Jayme Haji, [address] [place] [address], [address]. tel:[phone] [facility], [address] [place] [address], [id number] , [place] tel:[phone] [facility] hip pain (chief complaint) No Information Sep-2 1 Bandar Wolf. [address] [place] [address], [address]. tel:[phone] [facility], [address] [place] [address], [id number] , [place] tel:[phone] [facility] [place] Myalgia and myositis, unspecified 1 Aisha Scott Peg. [address] [place] [address], [id number], [place]. tel:[phone] Referring Provider: Jayme Haji, [address] [place] [address], [address]. [phone] [facility], [address] [place] [address], [id number] , [place] tel:[phone] [facility] hip pain (chief complaint) No Information 1 Bandar PT SHON Wolf. [address] [place] [address], [address]. tel:[phone] Referring Provider: Jayme Haji, [address] [place] [address], [address]. [phone] [facility], [address] [place] [address], [id number] , [place] tel:[phone] [facility] Myalgia and myositis, unspecified 1 Aisha Scott Peg. [address] [place] [address], [id number], [place]. tel:[phone] Referring Provider: Jayme Haji, [address] [place] [address], [address]. tel:[phone] OFFICE/OUTPAT IENT VISIT, EST [facility], [address] [place] [address], [id number] , [place] [phone] [facility] [place] widespread pain (chief complaint) Myalgia and myositis, unspecified 1 Chalino Delacruz. [address] [place] [address], [id number], [place]. tel:[phone] Referring Provider: Jayme Haji, [address] [place] [address], [address]. tel: [phone] [facility], [address] [place] [address], [id number] , [place] tel: [phone] [facility] hip pain (chief complaint) No Information 1 Portillo PT PRC Maryann. [address] [place] [address], [address]. tel:[phone] Referring Provider: Jayme Haji, [address] [place] [address], [address]. tel: [phone] [facility], [address] [place] [address], [id number] , [place] tel: [phone] [facility] Myalgia and myositis, unspecified 1 Aisha Alvarenga. [address] [place] [address], [id number], [place]. tel:[phone] Referring Provider: Jayme Haji, [address] [place] [address], [address]. tel: [phone] [facility], [address] [place] [address], [id number] , [place] tel: [phone] [facility] [place] No Information 1 Bandar PT PRC Maryann. [address] [place] [address], [address]. tel:[phone] Referring Provider: Jayme Haji, [address] [place] [address], [address]. tel: [phone] [facility], [address] [place] [address], [id number] , [place] tel: [phone] [facility] [place] No Information 1 Portillo PT PRC Maryann. [address] [place] [address], [address]. tel:[phone] Referring Provider: Jayme Haji, [address] [place] [address], [address]. tel:[phone] [facility], [address] [place] [address] [place], [place], [id number] , [place] tel: [phone] [facility] [place] Myalgia and myositis, unspecified 1 Aisha Tyler Peg. [address] [place] [address] [place], [id number], [place]. tel:[phone] Referring Provider: Jayme Haji, [address] [place] [address], [address]. tel:[phone] OFFICE/OUTPAT IENT VISIT, EST [facility], [address] [place] [address] [place], [id number] , [place] tel: [phone] [facility] [place] widespread pain (chief complaint) Myalgia and myositis, unspecified 1 Chalino Delacruz. [address] [place] [address] [place], [place], [id number], [place]. tel:[phone] Referring Provider: Jayme Haji, [address] [place] [address], [address]. tel:[phone] [facility], [address] [place] [address] [place], [id number] , [place] tel: [phone] [facility] [place] Myalgia and myositis, unspecified 1 Aisha Tyler Peg. [address] [place] [address] [place], [place], [id number], [place]. tel:[phone] Referring Provider: Jayme Haji, [address] [place] [address], [address]. tel:[phone] [facility], [address] [place] [address], [id number] , [place] tel:[phone] [facility] [place] No Information 1 Bandar Wolf. [address] [place] [address], [address]. tel:[phone] Referring Provider: Jayme Haji, [address] [place] [address], [address]. tel:[phone] [facility], [address] [place] [address] [place], [id number] , [place] tel: [phone] [facility] [place] No Information 1 Bandar Wolf. [address] [place] [address] [place], [address]. tel:[phone] Referring Provider: Jayme Haji, [address] [place] [address], [address]. tel:[phone] OFFICE/OUTPAT IENT VISIT, EST [facility], [address] [place] [address] [place], [id number] , [place] tel: [phone] [facility] [place] widespread pain (chief complaint) Myalgia and myositis, unspecified 1 Chalino Delacruz. [address] [place] [address], [id number], [place]. tel:[phone] Referring Provider: Jayme Haji, [address] [place] [address], [address]. tel:[phone] [facility], [address] [place] [address], [id number] , [place] tel: [phone] [facility] [place] No Information 1 Aisha Scott Peg. [address] [place] [address], [id number], [place]. tel:[phone] Referring Provider: Jayme Haji, [address] [place] [address], [address]. tel:[phone] [facility], [address] [place] [address] [place], [id number] , [place] tel: [phone] [facility] [place] No Information 1 Aisha Espinosain Peg. [address] [place] [address], [id number], [place]. tel:[phone] Referring Provider: Jayme Haji, [address] [place] [address], [address]. tel:[phone] [facility], [address] [place] [address], [id number] , [place] tel:[phone] [facility] [place] No Information 1 Aisha Tyler Alvarenga. [address] [place] [address], [id number], [place]. tel:[phone] Referring Provider: Jayme Haji, [address] [place] [address], [address]. tel:[phone] [facility], [address] [place] [address], [id number] , [place] tel:[phone] [facility] [place] No Information 1 Colten Hensley. [address] [place] [address], [address], [place]. tel:[phone] Referring Provider: Jayme Haji, [address] [place] [address], [address]. tel:[phone] OFFICE/OUTPAT IENT VISIT, EST [facility], [address] [place] [address], [id number] , [place] tel:[phone] [facility] [place] widespread pain (chief complaint) Myalgia and myositis, unspecified 1 Will Jayme. [address] [place] [address], [id number], [place]. tel:[phone] Referring Provider: Jayme Haji, [address] [place] [address], [address]. tel:[phone] OFFICE/OUTPAT IENT VISIT, [facility], [address] [place] [address], [id number] , [place] tel:[phone] [facility] [place] widespread pain (chief complaint) Myalgia and myositis, unspecified 1 Will Jayme. [address] [place] [address], [id number], [place]. tel:[phone] Referring Provider: Jayme Haji, [address] [place] [address], [address]. tel: [phone] [facility], [address] [place] [address], [id number] , tel: [phone] [facility] [place] No Information 0 Colten Hensley. [address] [place] [address], [facility], . tel:[phone] Referring Provider: Jayme Haji, [address] [place] [address], [address]. tel:[phone] [facility], [address] [place] [address], [id number] , tel: [phone] [facility] [place] No Information 0 Colten Hensley. [address] [place] [address], [facility], . tel:[phone] Referring Provider: Jayme Haji, [address] [place] [address], [address]. tel:[phone] [facility], [address] [place] [address], [id number] , tel: [phone] [facility] [place] No Information 0 Colten Hensley. [address] [place] [address], [facility], . tel:[phone] Referring Provider: Winter Wilson, [address] [place] [address], [address]. tel:[phone] OFFICE CONSULTATION [facility], [address] [place] [address], [id number] , tel: [phone] [facility] chronic pain pain (chief complaint) Myalgia and myositis, unspecified 0 Chalino Delacruz. [address] [place] [address], [id number], [place]. tel:[phone] Family History Family Member Type Diagnosis Age At Onset No Information Payers Payer name Insurance type Covered alliance party ID Lidia kellyblair(s) [facility] [id number] Social History Type Description Quantity Date Captured [...] order has not yet been received by [facility] and [facility]. Requests order be sent to Lexy Matthew [...] with some benefit. Tried steroid injections at [facility] without benefit. Has taken Ibuprofen, Tramadol, and hydrocodone for additional pain relief. No longer can tolerate NSAIDS due to frequent use in the past. She is not interested in opioid therapy as it has not been particularly helpful in the past. Nicki is interested in recommended therapies and would like [facility] to assume management of pain care. Abdominal [...]
--- OUTSIDE RECORDS SUMMARY | 2023-07-16 10:23 | XMS_ITS | Continuity of Care Document ---
Author Name Unknown Organization [facility] Address [address] [place] [address] Phone Care Team Providers Care Substitute Nurse Name Role Phone Carlotta FRANCES, Dylon Unavailable [...] [facility], [address], [place], [address], [place] tel:[phone] No Information 3 Carlotta Osborne. [facility] [address], [place], [address], [place]. tel:[phone] Family History Family Member Type Diagnosis Age At Onset No Information Payers Payer name Insurance type Covered green party ID Authoriza tion(s) No Information Social [...]
== END 2023-07-16 10:21 | disposition home or self-care (01) ==
PROVIDERS: PCP Family Medicine; Visit Provider Obstetrics & Gynecology
DX: N89.8 Other specified noninflammatory disorders of vagina (principal)
CPT/HCPCS: 87086

== ENCOUNTER 2023-09-07 10:45 | Outpatient (RCR) | payer MEDICAID, SELFPAY | END 2023-09-07 14:02 | disposition home or self-care (01) | PROVIDERS: PCP Family Medicine; Visit Provider Orthopaedic Surgery Hand Surgery | DX: M65.30 Trigger finger, unspecified finger (principal); M25.649 Stiffness of unspecified hand, not elsewhere classified; M79.643 Pain in unspecified hand; M79.646 Pain in unspecified finger(s); Z51.89 Encounter for other specified aftercare | CPT/HCPCS: 97035; 97110; 97140; 97165; X5282 ==

== ENCOUNTER 2024-01-14 10:51 | Outpatient (CLI) | payer MEDICAID, SELFPAY | END 2024-01-14 10:52 | disposition home or self-care (01) | LOC: LKVREF 10:51 | PROVIDERS: PCP Family Medicine; Visit Provider Obstetrics & Gynecology | DX: N89.8 Other specified noninflammatory disorders of vagina (principal) | CPT/HCPCS: 87109 ==

== ENCOUNTER 2024-01-26 13:30 | Outpatient (CLI) | payer MEDICAID, SELFPAY ==
[2024-01-26 23:23] LABS: Bacterial Vaginosis* Negative (Negative); Candida glab/krus NOT DETECTED (No Detected); Candida species NOT DETECTED (No Detected); Trichomonas vaginalis NOT DETECTED (No Detected)
== END 2024-01-26 13:31 | disposition home or self-care (01) ==
LOC: FRMREF 13:30
PROVIDERS: PCP Family Medicine; Visit Provider Obstetrics & Gynecology
DX: N89.8 Other specified noninflammatory disorders of vagina (principal)
CPT/HCPCS: 81513; 87481; 87661